=== PATIENT | female | born 1990 | race Caucasian/White ===

== ENCOUNTER 2019-11-11 03:55 | Inpatient (IN) | payer MEDICAID, SELFPAY ==
[2019-11-11] VITALS (21 sets, daily range): BP systolic 96–131; BP diastolic 59–78; PULSE 73–91; RESP 16–18; TEMP 36.1–37.3; O2SAT 82–98; BMI 30.7
[2019-11-11 03:53] LABS: ROM Internal Control Test YES-OK TO RESULT pt. (Internal QC)
[2019-11-11 03:54] LABS: ROM Patient Test POSITIVE (Negative)
[2019-11-11] MEDS: Lactated Ringers 1,000 ML 50 ML IV (04:30)
[2019-11-11 04:43] LABS: Absolute Lymphocyte Count 1.74 X10^3/uL (0.83-4.51); Absolute Neutrophil Count 12.2 X10^3/uL (2.0-7.7); Basophil# 0.07 X10^3/uL; Basophil% 0.5 % (0-1); Eosinophils% 0.6 % (0-5); Hematocrit 38.9 % (37-47); Hemoglobin 13.2 g/dL (12.0-15.0); Lymphocyte # 1.74 X10^3/ul (4.0); Lymphocyte % 11.3 % (19-41); Mean Corp Hgb Conc 33.9 g/dL (32-36); Mean Corpuscular Hgb 29.1 pg (27.0-32.0); Mean Corpuscular Volume 85.9 fL (81-99); Monocyte# 1.11 X10^3/uL; Monocyte% 7.2 % (0-10); NRBC Flagged by Analyzer 0 % (0-5); Neutrophil # 12.15 X10^3/uL (2.7-7.7); Neutrophil % 78.5 % (47-70); Platelet Count 226 K/mm3 (150-450); RBC Distribution Width CV 12.6 % (11.6-14.6); RBC Distribution Width SD 39.1 fl (35.1-43.9); Red Blood Count 4.53 M/mm3 (4.2-5.4); White Blood Count 15.5 K/mm3 (4.4-11.0)
[2019-11-11] MEDS: Betamethasone/Betamethasone 30 MG/5 ML Vial 12 MG IM (04:45)
[2019-11-11] MEDS: Oxytocin 30 units/NS 500 ml 30 UNITS/500 ML IV.SOLN IV (06:22)
[2019-11-11 06:44] LABS: Group B Strep DNA By PCR Negative (Negative); Internal Control PASS; Probe Check PASS; Specimen Processing Control PASS
--- NOTE | 2019-11-11 06:57 | HP.PCM_ITS ---
History Date of Admission: 11/11/19 Final ALEX: 12/18/19 Final ALEX Source: US <20 weeks Gestational age: 34 Weeks and 5 Days History of this : This is a 28 year-old, 2 para 1-0-0-1 who presents at 4-5/7 weeks gestation with a EDC of 12/18/2019 by last menstrual period confirmed by first trimester ultrasound presents complaining of spontaneous rupture of membranes at approximately 1 AM. She is had mild contractions. Some mild bloody show but no gross vaginal bleeding. Good movement. has been uncomplicated to date. Allergies No Known Allergies Allergy (Verified 12/13/16 15:52) Home Medications: Home Medications Vit,Calc76/Iron/Folic [Pnv 29-1 Tablet] 1 ea PO DAILY 11/11/19 Smoking Status: Never smoker Alcohol: None Number of Fetus(es): 1 NST - FHR Rate Baby A Baseline: Normal Variability:: Moderate Accelerations:: 15 x 15 History Past Pregnancies: Past Pregnancies Delivery Date Name GA/ Weeks Outcome Route Wt Sex Labor Length Anesthesia Delivery Location Provider FOB Expected Delivery Method: Spontaneous Vaginal Review of Systems Constitutional: Denies: Chills Eyes: Denies: Blurred vision Cardiovascular: Denies: Chest Pain Respiratory: Denies: Cough, Shortness of Breath Gastrointestinal: Denies: Abdominal Pain, Diarrhea, Nausea Genitourinary: Denies: Dysuria, Frequency Skin: Denies: Rash Neurological: Denies: Blurred vision Physical Exam Vitals: Vital Signs Temp Pulse BP Pulse Ox 97.0 F L 76 119/61 98 11/11/19 06:48 11/11/19 06:48 11/11/19 06:48 11/11/19 05:15 General: Alert, Cooperative, No apparent distress Cardiovascular: Regular rate Lungs: Normal air movement Abdomen: Soft, Non Tender, Non-Distended, Gravid, Appropriate for Gestational Age Extremities:: No edema Neurological: Neuro grossly intact [employer] RELATIONS: Normal external genitalia Estimated gestational size: Appropriate for gestational size Assessment/Plan This is a 28 year-old, 2 para 1-0-0-1 at 34-5/7 weeks gestation with premature rupture of membranes. Induction of labor with Pitocin. Group B strep prophylaxis initiated while rapid group B strep is pending. Received 1 dose of betamethasone early this morning upon admission. Automotive Technician aware of admission. Patient aware will need to go to special care nursery due to prematurity. May have epidural as needed for pain control. Patient is comfortable with plan.
--- NOTE | 2019-11-11 10:52 | PCM.PN.BLA ---
Progress Note Discussed plan of care with language teacher. At bedside to also discussed plan of care with patient and her . Reviewed risks including but not limited to infection and hemorrhage with expectant management and prolonging . Reviewed risks of prematurity with delivery. Discussed risks, benefits, alternatives of induction of labor versus expectant management. All questions answered. Discussed concern for underlying infection leading to premature rupture of membranes. White blood cell count is in the upper range of normal with a left shift as well. Patient is currently joy on her own, and contractions are regular and becoming more uncomfortable for the patient. Discussed option for 12-hour versus 24-hour dosing of betamethasone. After an in-depth discussion with patient and her , the plan is to continue penicillin for GBS unknown and give betamethasone at the 12-hour shankar. Patient appears to be laboring on her own. If the contractions stop or patient becomes more comfortable, will plan on Pitocin for augmentation. She understands risk of infection with prolonged rupture of membrane, and that this is a risk to both her and baby. The language teacher is now also going to talk to the patient and her more regarding risks of infection, risks of prematurity, special care nursery stay, etc. STROKE Vital Signs/Narrative: Vital Signs Temp Pulse BP 11/11/19 10:48 78 125/71 H 11/11/19 10:05 80 121/69 H 11/11/19 08:30 97.8 F 83 130/74 H 11/11/19 07:18 89 131/68 H 11/11/19 07:17 97.7 F L 89 131/68 H
[2019-11-11] MEDS: Lactated Ringers 500 ML 999 ML IV (11:29)
[2019-11-11] MEDS: Oxytocin 30 units/NS 500 ml 30 UNITS/500 ML IV.SOLN 334 UNITS IV (12:09)
--- NOTE | 2019-11-11 12:21 | PCM.OPRPT ---
Problem List (1) 34 weeks gestation of Status: Acute (2) premature rupture of membranes Status: Acute (3) Multiparity Status: Acute Report of Operation Date of Procedure: 11/11/19 Pre-Operative Diagnosis: 34 weeks gestation, PPROM with onset of labor within 24 hours of rupture, multiparous patient Post-Operative Diagnosis: As above Surgery/Procedure Performed:: Description of Surgical Findings:: VMI in cephalic presentation. Nuchal cord x 1. Intact and normal appearing placenta with 3 VC. Type of Anesthesia:: None Special Medications: None Specimen's removed: Placenta Drains: None Estimated Blood Loss (mL): 100 Description of Procedure: Called by nurse at 11:54 when patient was 8 cm dilated and had been preparing for an epidural. Upon entering the room, the nurse had delivered a viable male infant. The patient had precipitously delivered. The nurse reported the delivered without any force or delay. There was a loose nuchal cord x1. The infant was delivered atraumatically by the nurse and was placed on maternal abdomen. The cord was clamped and cut by the nurse as well. The placenta then spontaneously delivered and was inspected and noted to be normal-appearing and intact with a three-vessel cord. Fundus was firm and bleeding was hemostatic. No lacerations noted. Vaginal sweep performed. Instrument and sponge count was correct. Grafts/Implants Used: None - Complications None - Admit VTE Documentation VTE Present on Admission: No Vaginal Delivery Maternal Presentation: - - PPROM followed by active labor Method of Induction: - - Pitocin was initially started on admission, and then discontinued as patient appeared to be in labor on her own Amniotic Membrane Rupture Type: Spontaneous at home Rupture of Membrane time: 0100 Amniotic Fluid Description: Clear Final ALEX: 12/18/19 Gestational age: 34 Weeks and 5 Days Date of Procedure: 11/11/19 Surgery/ Procedure Performed: Spontaneous Vaginal Delivery Type of Anesthesia: None Presentation: Vertex Placental Delivery Description: Spontaneous Placenta Disposition: Sent to Pathology Cord Vessel Description: 3 Vessels Nuchal Cord Compression: Without compression Cord Gases drawn per routine: ABG, VBG Cord Entanglement: Around neck x 1, loose Infant A gender: Male (1 minute): 8 (5 minute): 9 Episiotomy Description: None Laceration: None Medications given after delivery: IV Pitocin Complications: None
[2019-11-11] MEDS: 0.9% Saline Lock 10 ML Syringe IV (14:27)
[2019-11-12 02:25] VITALS: BP 132/76; PULSE 82; RESP 16; TEMP 36.7
[2019-11-12 05:48] VITALS: BP 124/70; PULSE 85; RESP 18; TEMP 36.7
[2019-11-12 08:40] VITALS: BP 115/73; PULSE 84; RESP 16; TEMP 37.2; O2SAT 96
--- NOTE | 2019-11-12 10:20 | PN.OBGYN_ITS ---
Patient Problems: Active and Suspected Problems 34 weeks gestation of (Acute) premature rupture of membranes (PPROM) with onset of labor after 24 hours of rupture in first trimester, antepartum (Acute) premature rupture of membranes (Acute) Multiparity (Acute) Subjective: Doing well. Pain controlled. Ambulating voiding without difficulty. Denies lightheadedness, dizziness, chest pain, shortness of breath, leg pain. Lochia normal. She is pumping. She is tired this morning but otherwise has no co mplaints. - Physical Exam Vitals/I&O's: Vital Signs Temp Pulse Resp BP Pulse Ox 98.9 F 84 16 115/73 96 11/12/19 08:40 11/12/19 08:40 11/12/19 08:40 11/12/19 08:40 11/12/19 08:40 Oxygen Delivery Method Room Air Weight: 168 lb 3.403 oz Body Mass Index (BMI) 30.7 Intake and Output for Last 24 Hours 11/10/19 11/11/19 11/12/19 23:59 23:59 23:59 Intake Total 1582.79 / 1582.79 Balance 1582.79 / 1582.79 General: Alert, No apparent distress HEENT: Atraumatic Abdomen: Soft, Non Tender, Non-Distended, - - FF@U-1 Extremities: No edema, No Calf Tenderness Skin: No rashes Neurological: Neuro grossly intact Psych/Mental Status: Normal Affect, Appropriate Current Medications Acetaminophen (Tylenol) 1,000 mg PO Q8H PRN PRN PRN Reason: Pain Score 1-3/10 Bisacodyl (Dulcolax) 10 mg RECTAL UD PRN PRN Reason: If no BM Dibucaine (Dibucaine) 1 applic TOPICAL TID PRN PRN; Protocol PRN Reason: Discomfort Hydrocortisone (Hytone) 1 applic TOPICAL TID PRN PRN; Protocol PRN Reason: Discomfort Ibuprofen (Motrin) 600 mg PO Q6H PRN PRN PRN Reason: Pain Score 1-3/10 Methylergonovine Maleate (Methergine) 0.2 mg IM X1 PRN PRN Reason: Excess bleeding/uterine atony Ondansetron HCl (Zofran) 4 mg IV Q4H PRN PRN PRN Reason: Nausea Senna/Docusate Sodium (Senokot-S, Selin-Colace) 1 - 2 tablet PO DAILY PRN PRN PRN Reason: Constipation Simethicone (Mylicon) 80 mg PO PCHS PRN PRN Reason: Indigestion/Stomach pain Sodium Chloride () 5 - 15 ml IV UD PRN PRN Reason: SALINE FLUSH Last Admin: 11/11/19 14:27 Dose: 10 ml Documented by: Medical Necessity - Tobacco Use Smoking Status: Never smoker Assessment/Plan All Active Problems 34 weeks gestation of (Acute) premature rupture of membranes (PPROM) with onset of labor after 24 hours of rupture in first trimester, antepartum (Acute) premature rupture of membranes (Acute) Multiparity (Acute) Patient is day 1 from a vaginal delivery at 34 weeks gestation. Baby is in special care nursery. Mother is doing well and pumping. She has no complaints this morning. Routine care and anticipate discharge tomorrow.
[2019-11-12 12:25] VITALS: BP 107/67; PULSE 76; RESP 16; TEMP 37
[2019-11-12 16:25] VITALS: BP 127/78; PULSE 92; RESP 18; TEMP 36.6; O2SAT 96
[2019-11-12 22:10] VITALS: BP 122/75; PULSE 70; RESP 16; TEMP 36.6; O2SAT 95
--- NOTE | 2019-11-13 | NURSING ---
Pt called out around 2244 on 11/11 to let this RN know that she wanted to be discharged. RN went in to room to ask pt what changed her mind, pt stated that she needed to go home and take care of her 3 year old daughter because she didnt understand why momsunita wasnt coming home tonight. RN told her that she would check with Dr. Keenan and get back to her. RN reported back to mom [address] Keenan was in an emergency surgery and that RN would talk to her as soon as she got out. Pt responded with how long is that going to take?. RN told her she didnt know because it was an emergency surgery. Pt appeared annoyed by this. RN told her she would keep her updated when she spoke with Dr. Keenan, pt agreed to plan. Pt then asked if she could sign out AMA and still have hotel status, RN said she would check with charge out clerk. access control officer came to room with this RN to explain to pt the protocol. Pt agreed to wait for Dr. Keenan and was going to [facility] to feed baby. Pt then back from [facility] and called RN to see when Dr. Keenan was coming down. RN told her that the supervisor calibration just called and she was still in surgery, pt states she does not know if she will be able to wait or not. Pt decides to wait. Dr. Keenan down to see pt and discharged home. RN did discharge, pt voices understanding. access control officer and certified legal secretary specialist took pt out so that FOB could sign paperwork.
--- NOTE | 2019-11-13 00:32 | PCM.PN.BLA ---
Progress Note Pt requesting to be discharge now. She has no complaints and is doing well. Meeting all milestones to go home. D/c home. STROKE Vital Signs/Narrative: Vital Signs Temp Pulse Resp BP Pulse Ox 11/12/19 22:10 97.9 F 70 16 122/75 H 95
--- NOTE | 2019-11-13 00:33 | DCINST_ITS ---
Discharge Diet: No Restrictions Discharge Activity: May Not Drive, May Shower, May Take a Tub Bath May resume sexual activity in: 6 weeks Weight Bearing Status: Full weight bearing Call your doctor if you observe: Fever of 101 or Higher, Inability to urinate, Inability to have a bowel movement, Using more than one pad per hour, Shortness of breath, Dizziness, Chest pain, Increased palpitations (irregular heartbeat), Calf discomfort, Uncontrolled pain Additional Instructions: If you experience any of the following, contact your healthcare provider. * Bleeding that soaks a pad every hour for 2 hours * Fever 100.4 or higher * Unrelieved incision or abdominal pain * Swelling, redness, discharge or bleeding from your incision or episiotomy site * Your incision begins to separate * Problems urinating (including inability to urinate or burning while urinating). * Visual changes * Severe headache * Flu-like symptoms * Pain or redness in one of both of your breasts * Pain, warmth, tenderness or swelling in your legs, especially the calf area * Frequent nausea and vomiting * Symptoms of depression or anxiety If you experience any of the following, call 911 or go to the nearest Emergency Room. * Chest pain * Problems breathing * Seizure activity * Partial or complete paralysis of a body part, slurred speech, weakness or drooping of the face, or a sudden inability to walk or hold your balance Allergies/Adverse Reactions: Allergies No Known Allergies Allergy (Verified 12/13/16 15:52) Medications to take at Discharge Vit,Calc76/Iron/Folic [Pnv 29-1 Tablet] 1 ea PO DAILY 11/11/19 When: 6 week virtual visit Primary Care Physician: Care Physician,No Primary [Primary Care Provider] - Test Results: Test results from this visit will be discussed in further detail at your follow- up appointment, if applicable.
--- NOTE | 2019-11-13 00:33 | PCM.DCVAG ---
Discharge Diet: No Restrictions Discharge Activity: May Not Drive, May Shower, May Take a Tub Bath May resume sexual activity in: 6 weeks Weight Bearing Status: Full weight bearing Call your doctor if you observe: Fever of 101 or Higher, Inability to urinate, Inability to have a bowel movement, Using more than one pad per hour, Shortness of breath, Dizziness, Chest pain, Increased palpitations (irregular heartbeat), Calf discomfort, Uncontrolled pain Additional Instructions: If you experience any of the following, contact your healthcare provider. Bleeding that soaks a pad every hour for 2 hours Fever 100.4 or higher Unrelieved incision or abdominal pain Swelling, redness, discharge or bleeding from your incision or episiotomy site Your incision begins to separate Problems urinating (including inability to urinate or burning while urinating). Visual changes Severe headache Flu-like symptoms Pain or redness in one of both of your breasts Pain, warmth, tenderness or swelling in your legs, especially the calf area Frequent nausea and vomiting Symptoms of depression or anxiety If you experience any of the following, call 911 or go to the nearest Emergency Room. Chest pain Problems breathing Seizure activity Partial or complete paralysis of a body part, slurred speech, weakness or drooping of the face, or a sudden inability to walk or hold your balance Allergies/Adverse Reactions: Allergies No Known Allergies Allergy (Verified 12/13/16 15:52) Medications to take at Discharge Vit,Calc76/Iron/Folic [Pnv 29-1 Tablet] 1 ea PO DAILY 11/11/19 When: 6 week virtual visit Primary Care Physician: Care Physician,No Primary [Primary Care Provider] - Test Results: Test results from this visit will be discussed in further detail at your follow-up appointment, if applicable.
== END 2019-11-13 01:00 | disposition home or self-care (01) | DRG 560 ==
LOC: WPOUT 03:56 → WP 03:56
PROVIDERS: Admitting Provider Obstetrics & Gynecology; Referring Provider Obstetrics & Gynecology; Visit Provider Obstetrics & Gynecology
DX: O42.013 Preterm premature rupture of membranes, onset of labor within 24 hours of rupture, third trimester (principal); Z3A.34 34 weeks gestation of pregnancy; Z37.0 Single live birth; O69.81X0 Labor and delivery complicated by cord around neck, without compression, not applicable or unspecified; O62.3 Precipitate labor
CPT/HCPCS: 59025; 59050; 84112; 85025; 86850; 86900; 86901; 87653; 99218; J7120; A4216; G0378; J0702